=== PATIENT | male | born 1940 | race Caucasian/White ===

== ENCOUNTER 2022-06-26 11:26 | Outpatient (CLI) | payer MEDICARE, SELFPAY | END 2022-06-26 11:27 | disposition home or self-care (01) | LOC: AMB 07-16 12:19 | PROVIDERS: PCP Family Medicine; Visit Provider Emergency Medicine Emergency Medical Services | DX: R53.1 Weakness (principal) | CPT/HCPCS: A0998 ==

== ENCOUNTER 2023-11-17 09:20 | Emergency (ER) | payer MEDICARE, SELFPAY ==
[2023-11-17] VITALS (14 sets, daily range): BP systolic 145–161; BP diastolic 73–89; PULSE 60–100; RESP 18; TEMP 36.2; O2SAT 93–97; BMI 25.0
--- NOTE | 2023-11-17 09:25 | ED_ITS ---
HPI - General Adult General Date Seen: 11/17/23 Chief complaint: Fall/Minor Trauma Stated complaint: fall, head lac Time Seen by Provider: 11/17/23 09:22 History of Present Illness HPI narrative: This is a very pleasant 83-year-old gentleman brought to the ER today by his 2 daughters. He has a history of a mechanical aortic valve and a pacemaker. He is on warfarin, metoprolol. Recent INR was 3.2. He and his daughters were preparing to travel to [place] today for a family reunion. He was did trying to climb into his daughter's vehicle (at [facility]) when he lost his balance and slipped on the running board. He fell back and hit his head on the ground ([place]) and also scraped up his left hand. He did have some bleeding from scrape on the left thumb and index finger but that was controlled at home and dressings were applied. He does not have any significant injuries there. His daughters have noticed that he developed a fairly large hematoma on his left yazdanism that began to expand almost immediately after his fell. He does not really have much of a headache. Mental status is normal. Vision is normal. He does have some ?stiffness? in his lower neck and upper back. He says his upper back is always stiff but is worse than normal today. No numbness or tingling or weakness in his arms or legs. No lower back pain. No chest pain or rib pain. No trouble breathing. No abdominal pain. No injury to his hips or knees. Related Data Home Medications Medication Instructions Recorded Confirmed gabapentin 600 mg tablet 600 mg PO 3XD 11/17/23 11/17/23 isosorbide mononitrate 30 mg 30 mg PO DAILY 11/17/23 11/17/23 tablet,extended release 24 hr levetiracetam 750 mg tablet 750 mg PO BID 11/17/23 11/17/23 lovastatin 40 mg tablet 40 mg PO QPM cholesterol 11/17/23 11/17/23 metoprolol succinate 50 mg 50 mg PO DAILY 11/17/23 11/17/23 tablet,extended release 24 hr warfarin 2 mg tablet 1.5 - 5 mg PO QPM 11/17/23 11/17/23 Allergies Allergy/AdvReac Type Severity Reaction Status Date / Time No Known Drug Allergies Allergy Verified 11/17/23 09:31 [facility] Social History Smoking Status: Never smoker Do you use any of these nicotine containing products: None How often do you have a drink containing alcohol: never How often do you have six or more drinks on one occasion: Never AUDIT-C Alcohol total score: 0 Non-prescribed substance use: denies use service: No Exam Narrative: Exam Narrative: Constitutional: Appears well-developed and well-nourished. Alert. Conversant. Non toxic. HENT: Head: He has a fairly large 5 x 6 cm right temporal hematoma that is bulging out from the skull by of approximately 2-3 cm. No pulsatility. No signs of ongoing active expansion. No palpable crepitus or underlying skull fracture. There is an overlying abrasion on the top edge of it and a overlies Ng superficial linear abrasion/laceration directly over the hematoma. No active bleeding. Nose: Nose normal. Mouth/Throat: Oral mucosa is clear and moist. no trismus. Pharynx normal. Tonsils symmetric. No tonsillar enlargement, erythema, or exudate. Eyes: Wearing his glasses. Glasses in frames are not broken. Conjunctivae normal. EOM normal. Pupils equal, round, and reactive to light. No scleral icterus. Neck: Normal range of motion. Neck supple. No tracheal deviation present. He does have mild discomfort to palpation over the lower cervical and upper thoracic spine. No step-off. No bony crepitus. Cardiovascular: Normal rate, regular rhythm. No gallop. No friction rub. Clicking system murmur heard. Symmetric radial artery pulses Pulmonary/Chest: Effort normal. No stridor. No respiratory distress. No wheezes. No rales. No rhonchi . No tenderness. Abdominal: Soft. Bowel sounds normal. No distension. No mass. No tenderness. No rebound. No guarding. Musculoskeletal: RUE: Normal range of motion. No tenderness. No deformity LUE: Normal range of motion. No tenderness. No deformity RLE: Normal range of motion. No edema. No tenderness. No deformity LLE: Normal range of motion. No edema. No tenderness. No deformity Neurological: Alert and oriented to person, place, and time. Normal strength. CN II-VII intact. No sensory deficit. GCS eye subscore is 4. GCS verbal subscore is 5. GCS motor subscore is 6. Normal coordination Skin: Skin is warm and dry. No rash noted. No pallor. Normal capillary refill. Psychiatric: Normal mood. Normal affect. Const: Vital Signs, click to edit/add: Vital Signs - 24 hr 11/17/23 09:25 11/17/23 11:19 11/17/23 11:20 Temperature 97.1 F L Pulse Rate 67 64 Pulse Rate [Right Pulse Oximeter] 67 Respiratory Rate 18 Blood Pressure 148/74 H Blood Pressure [Ri ght Upper Arm] 161/88 H Pulse Oximetry 96 96 95 Oxygen Delivery Me thod Room Air 11/17/23 11:33 11/17/23 11:34 11/17/23 11:45 Temperature Pulse Rate 100 93 61 Pulse Rate [Right Pulse Oximeter] Respiratory Rate Blood Pressure 149/89 H Blood Pressure [Ri ght Upper Arm] Pulse Oximetry 93 95 96 Oxygen Delivery Me thod 11/17/23 12:00 11/17/23 12:02 11/17/23 12:03 Temperature Pulse Rate 62 66 63 Pulse Rate [Right Pulse Oximeter] Respiratory Rate Blood Pressure 151/73 H Blood Pressure [Ri ght Upper Arm] Pulse Oximetry 96 96 96 Oxygen Delivery Me thod 11/17/23 12:15 11/17/23 12:30 11/17/23 12:32 Temperature Pulse Rate 62 62 61 Pulse Rate [Right Pulse Oximeter] Respiratory Rate Blood Pressure 145/76 H Blood Pressure [Ri ght Upper Arm] Pulse Oximetry 96 96 96 Oxygen Delivery Me thod 11/17/23 12:45 11/17/23 13:00 Temperature Pulse Rate 60 76 Pulse Rate [Right Pulse Oximeter] Respiratory Rate Blood Pressure Blood Pressure [Ri ght Upper Arm] Pulse Oximetry 97 96 Oxygen Delivery Me thod Course Vital Signs Vital signs: Initial Vital Signs Temperature 97.1 F L 11/17/23 09:25 Temperature Source Temporal Artery Scan 11/17/23 09:25 Pulse Rate 67 11/17/23 09:25 Pulse Rhythm Regular 11/17/23 09:25 Respiratory Rate 18 11/17/23 09:25 Blood Pressure 161/88 H 11/17/23 09:25 Blood Pressure Mean 112 H 11/17/23 09:25 Blood Pressure Position Semi-Fowlers 11/17/23 09:25 Pulse Oximetry 96 11/17/23 09:25 Oxygen Delivery Method Room Air 11/17/23 09:25 Vital Signs Temperature 97.1 F L 11/17/23 09:25 Pulse Rate 67 11/17/23 09:25 Respiratory Rate 18 11/17/23 09:25 Blood Pressure 161/88 H 11/17/23 09:25 Pulse Oximetry 96 11/17/23 09:25 Oxygen Delivery Method Room Air 11/17/23 09:25 Temperature 97.1 F L 11/17/23 09:25 Pulse Rate 76 11/17/23 13:00 Respiratory Rate 18 11/17/23 09:25 Blood Pressure 145/76 H 11/17/23 12:32 Pulse Oximetry 96 11/17/23 13:00 Oxygen Delivery Method Room Air 11/17/23 09:25 Medications Administered Medications: Discontinued Medications Generic Name Dose Route Start Last Admin Trade Name Freq PRN Reason Stop Dose Admin Phytonadione 5 mg/ Sodium 50.5 mls @ 100 mls/hr 11/17/23 11:16 11/17/23 12:00 Chloride IVPB 11/17/23 11:46 Infused ONCE ONE Infusion Prothrombin Complex Concent (Human) 1,570 unit 11/17/23 11:58 11/17/23 12:29 Prothrombin Complex Conc IV 11/17/23 11:59 1,570 unit ONCE ONE Administration Medical Decision Making [facility] Narrative Medical decision making narrative: Pleasant 83-year-old gentleman presenting to the ER today with his daughters for evaluation after he had a slip and fall with a ground level fall. He struck his head against the pavement and suffered injury to his right temporal region. He presented with a fairly large right temporal hematoma. Otherwise notes neur ologically intact with GCS of 15 and no focal deficits. Head CT scan is obtained and does show evidence for small intracranial hemorrhage. These would be extra-axial subarachnoid but not subdural or epidural hematomas. Fortunately he is neurologically intact. He is on warfarin. INR is therapeutic at 2.8. No other signs of bleeding. Hemoglobin and blood pressure stable. With intracranial bleeding, although at this point he is neurologically intact, I do think he needs reversal of his warfarin. He is on it for mechanical aortic valve so risk of reversing the warfarin would include potential embolic stroke. However risk of leaving him anticoagulated could be expanding intracranial bleeding leading to life-threatening complications. Discussed with family and they agree and understand. Treated with vitamin K and PCC here in the ER At this point no need for emergent neurosurgical intervention but does need hospitalization at a neuro surgical capable facility in case his condition deteriorates. Discussed with the patient the family. They initially wanted to transfer to [facility]. Unfortunately no beds available there. We did do consultation with the [facility] retail parts professional and they were accepted in currently on a waiting list for a bed at [place]. Family adamantly did not want the patient to go to [place]. Therefore we contacted [facility]. They septic the patient in transfer and will be transferred by EMS to the ER at [facility]. Multiple bedside rechecks the patient remained neurologically intact. Initial hypertension of 160/88 came down to 145/76. No need for antihypertensive therapy at this time. He also had posterior neck stiffness affecting his lower cervical and upper thoracic spine. No focal neurologic deficits to suggest spinal cord injury. CT scans of the C-spine and T-spine showed no acute injury. He has had previous falls a couple of years ago with chronic previously known compression fractures. No sign of any acute vertebra injury. Lab Data Labs: Lab Results 11/17/23 Range/Units 10:10 WBC 6.12 (4.50-11.00) K/uL RBC 4.53 (4.30-5.90) m/uL Hgb 13.4 L (13.5-17.5) gm/dL Hct 42.1 (37.0-53.0) % MCV 93 (80-100) fL MCH 30 (26-34) pg MCHC 32 (32-36) gm/dL RDW Coeff of Zeynep 14.1 (11.5-15.5) % Plt Count 202 (140-440) K/uL Neut % (Auto) 64.7 (42.0-72.0) % Lymph % (Auto) 20.8 (20-44) % [place] % (Auto) 11.4 H (0.0-11.0) % Eos % (Auto) 2.6 (0.0-7.0) % Baso % (Auto) 0.3 (0.0-3.0) % Neut # (Auto) 3.96 (1.7-7.0) K/uL Lymph # (Auto) 1.27 (0.90-2.90) K/uL [place] # (Auto) 0.70 (0.00-0.90) K/UL Eos # (Auto) 0.16 (0.00-0.50) K/uL Baso # (Auto) 0.02 (0.00-0.30) K/uL Abs Immat Gran (auto) 0.01 (0.00-0.30) K/uL Imm/Tot Granulo (auto) 0.2 % INR 2.79 H (0.91-1.10) Sodium 142 (135-149) mmol/L Potassium 4.0 (3.6-5.1) mmol/L Chloride 112 (96-114) mmol/L Carbon Dioxide 28 (20-32) mmol/L Anion Gap 2 L (7-15) mEq/L BUN 22 (7-30) mg/dL Creatinine 0.8 (0.5-1.5) mg/dL Estimated Creat Clear 51.39 Estimated GFR 88 ml/min Glucose 101 (60-115) mg/dL Calcium 8.8 (8.4-10.6) mg/dL Imaging Data CT C spine: Attestation: I have reviewed the pertinent imaging results. Radiologist's impression: Impression: 1. No CT evidence of acute fracture or traumatic malalignment in the cervical spine. CT T spine: Attestation: I have reviewed the pertinent imaging results. Radiologist's impression: Impression: 1. Multilevel chronic-appearing compression deformities throughout the visualized thoracic and upper lumbar spine as detailed, along with numerous chronic healed right rib deformities. 2. No convincing evidence of acute thoracic spine fracture. CT scan - head: Attestation: I have reviewed the pertinent imaging results. Radiologist's impression: IMPRESSION: 1. Right frontal scalp hematoma, with multiple small foci of intracranial extra- axial hemorrhage as detailed. 2. No obvious skull fracture. No midline shift, hydrocephalus or herniation. 3. 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 Discharge Plan Discharge Prescriptions: No Action gabapentin 600 mg tablet 600 mg PO 3XD metoprolol succinate 50 mg tablet extended release 24 hr 50 mg PO DAILY isosorbide mononitrate 30 mg tablet extended release 24 hr 30 mg PO DAILY lovastatin 40 mg tablet 40 mg PO QPM warfarin 2 mg tablet 1.5 - 5 mg PO QPM levetiracetam 750 mg tablet 750 mg PO BID Follow Up/Referrals: Eric Juarez MD [Primary Care Provider] -
--- NOTE | 2023-11-17 09:26 | CT_ITS ---
Patient: DUANE BRAY JR Facility:?[facility] R[facility] Patient ID:?[id number] Site Patient ID:?[id number]. Site :?[id number] Study:?CT-Head W/O-11/17/2023 10:19:56 AM Ordering Physician:NEERU Final Report: INDICATION: Fall, trauma, scalp contusion, on warfarin TECHNIQUE: Noncontrast axial CT of the head. Coronal and sagittal reformats. Bone and soft tissue algorithms. COMPARISON: No relevant comparison studies available at this institution. FINDINGS: Right frontal scalp hematoma. Scattered small foci of extra-axial hemorrhage along the right frontal convexity, anterior/parafalcine left frontal lobe, right temporal sulci, and left lateral frontoparietal sulci. No midline shift, hydrocephalus or herniation. Preserved goodson-white matter differentiation. Small chronic infarct at the right posterior insula. Mild generalized cerebral volume loss. Patchy hypoattenuation throughout the supratentorial white matter, typical of mild chronic microangiopathy. Calcific intracranial atherosclerotic plaquing. Intact calvarium. Clear visualized paranasal sinuses and mastoid air cells. Unremarkable orbits. IMPRESSION: 1. Right frontal scalp hematoma, with multiple small foci of intracranial extra- axial hemorrhage as detailed. 2. No obvious skull fracture. No midline shift, hydrocephalus or herniation. 3. 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 Please note that all CT scans at this facility use dose modulation, iterative reconstruction, and/or weight-based dosing when appropriate to reduce radiation dose to as low as reasonably achievable. Dictated by Hannah Sandoval MD @ 11/17/2023 10:52:42 AM ----- ADDENDUM ----- Exam findings were discussed with Dr. Peters at 10:52 a.m. on 11/17/2023. Dictated by Hannah Sandoval MD @ Nov 17 2023 11:10AM Signed by:?Hannah Sandoval MD @11/17/2023 10:52:42 AM (Electronic Signature)
--- NOTE | 2023-11-17 09:36 | CT_ITS ---
Patient: DUANE BRAY JR Facility:?[facility] R[facility] Patient ID:?[id number] Site Patient ID:?[id number]. Site :?1940 Study:?CT-Spine Thoracic W/O-11/17/2023 10:20:44 AM Ordering Physician:NEERU Final Report: Indication: Fall, trauma, scalp contusion on warfarin. Neck and upper back pain. Technique: Noncontrast axial CT of the thoracic spine with coronal and sagittal reformats. Comparison: Same-day CT cervical spine. Findings: The normal thoracic kyphosis is preserved. No significant spondylolisthesis. Mild-moderate superior endplate anterior wedge compression deformities at T3 and T4. Moderate superior endplate anterior wedge compression deformity at T9. Severe compression deformity and anterior cortical retropulsion at L1. Scattered additional degenerative endplate Schmorl`s node deformities. No acute fracture identified. Numerous chronic healed right rib fractures. Spinal canal appears widely patent. No high-grade neural foraminal stenosis identified. No concerning findings in the paraspinal soft tissues. Partially visualized left pectoral transvenous pacemaker and leads. Median sternotomy changes. Scattered atherosclerotic plaquing. Slightly patulous air and fluid-filled esophagus. No focal mass, consolidation, or pneumothorax within the included lungs. Incidental bullous changes at the posterior right lower lobe. Cholecystectomy changes. Left renal cyst. Impression: 1. Multilevel chronic-appearing compression deformities throughout the visualized thoracic and upper lumbar spine as detailed, along with numerous chronic healed right rib deformities. 2. No convincing evidence of acute thoracic spine fracture. Please note that all CT scans at this facility use dose modulation, iterative reconstruction, and/or weight-based dosing when appropriate to reduce radiation dose to as low as reasonably achievable. Dictated by Hannah Sandoval MD @ 11/17/2023 11:03:18 AM Signed by:?Hannah Sandoval MD @11/17/2023 11:03:18 AM (Electronic Signature)
--- NOTE | 2023-11-17 09:36 | CT_ITS ---
Patient: DUANE BRAY JR Facility:?[facility] Patient ID:?[id number] Site Patient ID:?[id number]. Site :?1940 Study:?CT-Spine Cervical W/O-11/17/2023 10:20:23 AM Ordering Physician:NEERU Final Report: Indication: Fall, trauma, scalp contusion, on warfarin. Neck and upper back pain. Technique: Noncontrast axial CT of the cervical spine with coronal and sagittal reformats. Comparison: Same-day CT head Findings: The normal cervical lordosis is preserved. Trace degenerative anterolisthesis at a few lower cervical levels. No evidence to suggest traumatic subluxation. Craniocervical junction appears within normal limits. Vertebral body heights are grossly maintained. No acute fracture identified. No concerning findings identified in the paraspinal soft tissues. Postop changes are noted at the right carotid space. Scattered spondylosis, including shallow central disc protrusion at C3-4 and mild facet arthropathy. No high-grade neural foraminal or spinal canal stenosis. No apical pneumothorax identified given motion artifact limitations. Impression: 1. No CT evidence of acute fracture or traumatic malalignment in the cervical spine. Please note that all CT scans at this facility use dose modulation, iterative reconstruction, and/or weight-based dosing when appropriate to reduce radiation dose to as low as reasonably achievable. Dictated by Hannah Sandoval MD @ 11/17/2023 10:57:41 AM Signed by:?Hannah Sandoval MD @11/17/2023 10:57:41 AM (Electronic Signature)
[2023-11-17 10:18] LABS: Basophils Absolute Auto 0.02 K/uL (0.00-0.30); Basophils Percent Auto 0.3 % (0.0-3.0); Eosinophils Absolute Auto 0.16 K/uL (0.00-0.50); Eosinophils Percent Auto 2.6 % (0.0-7.0); Hematocrit 42.1 % (37.0-53.0); Hemoglobin* 13.4 gm/dL (13.5-17.5); Immature Granulocytes Abs Auto 0.01 K/uL (0.00-0.30); Immature Granulocytes Pct Auto 0.2 %; Lymphocytes Absolute Auto 1.27 K/uL (0.90-2.90); Lymphocytes Percent Auto 20.8 % (20-44); Mean Corpuscular HGB Conc 32 gm/dL (32-36); Mean Corpuscular Hemoglobin 30 pg (26-34); Mean Corpuscular Volume 93 fL (80-100); Monocytes Percent Auto 11.4 % (0.0-11.0); Neutrophils Absolute Auto 3.96 K/uL (1.7-7.0); Neutrophils Percent Auto 64.7 % (42.0-72.0); Platelet Count* 202 K/uL (140-440); RDW Coefficient of Variation % 14.1 % (11.5-15.5); Red Blood Count 4.53 m/uL (4.30-5.90); White Blood Count* 6.12 K/uL (4.50-11.00)
[2023-11-17 10:24] LABS: Slide Review Reflex No
[2023-11-17 10:29] LABS: Chloride* 112 mmol/L (96-114); Sodium* 142 mmol/L (135-149)
[2023-11-17 10:32] LABS: Anion Gap 2 mEq/L (7-15); Blood Urea Nitrogen* 22 mg/dL (7-30); Carbon Dioxide* 28 mmol/L (20-32); Creatinine* 0.8 mg/dL (0.5-1.5); Est. Creatinine Clearance* 51.39; Estimated Glomerular Filt Rate 88 ml/min; INR 2.79 (0.91-1.10); Prothrombin Time 31.6 Seconds
[2023-11-17 10:33] LABS: Calcium* 8.8 mg/dL (8.4-10.6); Glucose* 101 mg/dL (60-115)
[2023-11-17] MEDS: PHYTONADIONE (VIT K1) 5 MG in 0.9 % SODIUM CHLORIDE 50 ml 50 ML 100 MG IVPB (11:46)
--- NOTE | 2023-11-17 13:05 | ED.NURSE ---
report given to EMS.
--- NOTE | 2024-01-30 16:31 | ED_ITS ---
HPI - General Adult General Date Seen: 11/17/23 Chief complaint: Fall/Minor Trauma Stated complaint: fall, head lac Time Seen by Provider: 11/17/23 09:22 History of Present Illness HPI narrative: This is an addendum to my ER note from this patient from October 2023. I inadvertently admitted my clinical impression from his chart during urgency to get him transferred. Clinical impression: 1. Traumatic intracranial hemorrhage 2. Elevated INR Related Data Home Medications ?Medication ?Instructions ?Recorded ?Confirmed gabapentin 600 mg tablet 600 mg PO 3XD 11/17/23 11/17/23 isosorbide mononitrate 30 mg 30 mg PO DAILY 11/17/23 11/17/23 tablet,extended release 24 hr levetiracetam 750 mg tablet 750 mg PO BID 11/17/23 11/17/23 lovastatin 40 mg tablet 40 mg PO QPM cholesterol 11/17/23 11/17/23 metoprolol succinate 50 mg 50 mg PO DAILY 11/17/23 11/17/23 tablet,extended release 24 hr warfarin 2 mg tablet 1.5 - 5 mg PO QPM 11/17/23 11/17/23 Allergies Allergy/AdvReac Type Severity Reaction Status Date / Time No Known Drug Allergies Allergy Verified 11/17/23 09:31 [facility] Social History Smoking Status: Never smoker Do you use any of these nicotine containing products: None How often do you have a drink containing alcohol: never How often do you have six or more drinks on one occasion: Never AUDIT-C Alcohol total score: 0 Non-prescribed substance use: denies use service: No Course Vital Signs Vital signs: Initial Vital Signs Temperature 97.1 F L 11/17/23 09:25 Temperature Source Temporal Artery Scan 11/17/23 09:25 Pulse Rate 67 11/17/23 09:25 Pulse Rhythm Regular 11/17/23 09:25 Respiratory Rate 18 11/17/23 09:25 Blood Pressure 161/88 H 11/17/23 09:25 Blood Pressure Mean 112 H 11/17/23 09:25 Blood Pressure Position Semi-Fowlers 11/17/23 09:25 Pulse Oximetry 96 11/17/23 09:25 Oxygen Delivery Method Room Air 11/17/23 09:25 Vital Signs Temperature 97.1 F L 11/17/23 09:25 Pulse Rate 67 11/17/23 09:25 Respiratory Rate 18 04/20/24 09:25 Blood Pressure 161/88 H 11/17/23 09:25 Pulse Oximetry 96 11/17/23 09:25 Oxygen Delivery Method Room Air 11/17/23 09:25 Temperature 97.1 F L 11/17/23 09:25 Pulse Rate 76 11/17/23 13:00 Respiratory Rate 18 11/17/23 09:25 Blood Pressure 145/76 H 11/17/23 12:32 Pulse Oximetry 96 11/17/23 13:00 Oxygen Delivery Method Room Air 11/17/23 09:25 Medications Administered Medications: Discontinued Medications Generic Name Dose Route Start Last Admin Trade Name Freq PRN Reason Stop Dose Admin Phytonadione 5 mg/ Sodium 50.5 mls @ 100 mls/hr 11/17/23 11:16 11/17/23 12:00 Chloride IVPB 11/17/23 11:46 Infused ONCE ONE Infusion Prothrombin Complex Concent (Human) 1,570 unit 11/17/23 11:58 11/17/23 12:29 Prothrombin Complex Conc IV 11/17/23 11:59 1,570 unit ONCE ONE Administration Medical Decision Making Lab Data Labs: Lab Results 11/17/23 Range/Units 10:10 WBC 6.12 (4.50-11.00) K/uL RBC 4.53 (4.30-5.90) m/uL Hgb 13.4 L (13.5-17.5) gm/dL Hct 42.1 (37.0-53.0) % MCV 93 (80-100) fL MCH 30 (26-34) pg MCHC 32 (32-36) gm/dL RDW Coeff of Zeynep 14.1 (11.5-15.5) % Plt Count 202 (140-440) K/uL Neut % (Auto) 64.7 (42.0-72.0) % Lymph % (Auto) 20.8 (20-44) % [place] % (Auto) 11.4 H (0.0-11.0) % Eos % (Auto) 2.6 (0.0-7.0) % Baso % (Auto) 0.3 (0.0-3.0) % Neut # (Auto) 3.96 (1.7-7.0) K/uL Lymph # (Auto) 1.27 (0.90-2.90) K/uL [place] # (Auto) 0.70 (0.00-0.90) K/UL Eos # (Auto) 0.16 (0.00-0.50) K/uL Baso # (Auto) 0.02 (0.00-0.30) K/uL Abs Immat Gran (auto) 0.01 (0.00-0.30) K/uL Imm/Tot Granulo (auto) 0.2 % INR 2.79 H (0.91-1.10) Sodium 142 (135-149) mmol/L Potassium 4.0 (3.6-5.1) mmol/L Chloride 112 (96-114) mmol/L Carbon Dioxide 28 (20-32) mmol/L Anion Gap 2 L (7-15) mEq/L BUN 22 (7-30) mg/dL Creatinine 0.8 (0.5-1.5) mg/dL Estimated Creat Clear 51.39 Estimated GFR 88 ml/min Glucose 101 (60-115) mg/dL Calcium 8.8 (8.4-10.6) mg/dL Discharge Plan Discharge Clinical Impression: Traumatic intracranial hemorrhage, Elevated INR Prescriptions: No Action gabapentin 600 mg tablet 600 mg PO 3XD metoprolol succinate 50 mg tablet extended release 24 hr 50 mg PO DAILY isosorbide mononitrate 30 mg tablet extended release 24 hr 30 mg PO DAILY lovastatin 40 mg tablet 40 mg PO QPM warfarin 2 mg tablet 1.5 - 5 mg PO QPM levetiracetam 750 mg tablet 750 mg PO BID Follow Up/Referrals: Eric Juarez MD [Primary Care Provider] -
== END 2023-11-17 13:09 | disposition short-term general hospital (02) ==
LOC: ED 10:10
PROVIDERS: Emergency Provider Emergency Medicine; PCP Family Medicine
DX: S06.6X0A Traumatic subarachnoid hemorrhage without loss of consciousness, initial encounter (principal); W19.XXXA Unspecified fall, initial encounter; Y92.014 Private driveway to single-family (private) house as the place of occurrence of the external cause; Z79.01 Long term (current) use of anticoagulants
CPT/HCPCS: 36415; 70450; 72125; 72128; 80048; 85025; 85610; 96365; 96375; 99284; 99285; J3430; J7168

== ENCOUNTER 2023-11-17 13:10 | Outpatient (CLI) | payer MEDICARE, SELFPAY | END 2023-11-17 13:11 | disposition home or self-care (01) | LOC: AMB 11-18 14:25 | PROVIDERS: PCP Family Medicine; Visit Provider Family Medicine | DX: S00.03XS Contusion of scalp, sequela (principal) | CPT/HCPCS: A0425; A0427 ==

== ENCOUNTER 2024-07-11 17:46 | Emergency (ER) | payer MEDICARE, SELFPAY ==
[2024-07-11 17:53] VITALS: BP 178/74; PULSE 82; RESP 18; TEMP 36.4; O2SAT 99; BMI 25.4
--- NOTE | 2024-07-11 18:35 | ED_ITS ---
HPI - General Adult General Date Seen: 07/11/24 Chief complaint: Fall/Minor Trauma Stated complaint: L side facial fracture Time Seen by Provider: 07/11/24 17:49 Source: patient History of Present Illness HPI narrative: Patient is an 83-year-old male here with his daughter. He sustained a fall couple of weeks ago, had seen his primary doctor in clinic today and noted that he had had some nose bleeds on the left side. A CT scan was done as a result, and they received a call a little bit ago that he should go to the ER. He denies any complaints at this time. Specifically he does not have any facial or ocular pain, does not have any complaints of new blurred vision, no diplopia, he does note intermittent nose bleeds. He has not had any clear nasal drainage. He does not have any history of fevers. He is anticoagulated on Coumadin. Related Data Home Medications ?Medication ?Instructions ?Recorded ?Confirmed gabapentin 600 mg tablet 600 mg PO 3XD 11/17/23 11/17/23 isosorbide mononitrate 30 mg 30 mg PO DAILY 11/17/23 11/17/23 tablet,extended release 24 hr levetiracetam 750 mg tablet 750 mg PO BID 11/17/23 11/17/23 lovastatin 40 mg tablet 40 mg PO QPM cholesterol 11/17/23 11/17/23 metoprolol succinate 50 mg 50 mg PO DAILY 11/17/23 11/17/23 tablet,extended release 24 hr warfarin 2 mg tablet 1.5 - 5 mg PO QPM 11/17/23 11/17/23 Allergies Allergy/AdvReac Type Severity Reaction Status Date / Time No Known Drug Allergies Allergy Verified 11/17/23 09:31 Review of Systems Status of ROS: Reports: 10 or more systems reviewed and unremarkable except as noted in History and below [facility] Social History Smoking Status: Never smoker Do you use any of these nicotine containing products: None How often do you have a drink containing alcohol: never How often do you have six or more drinks on one occasion: Never AUDIT-C Alcohol total score: 0 Non-prescribed substance use: denies use service: No Exam Narrative: Exam Narrative: Vital signs reviewed In general, alert, well-appearing elderly male. Head: Normocephalic, appears atraumatic at this time. Eyes: Pupils are equal and reactive. Extraocular movements are full no evidence of entrapment. ENT: He does not have any nasal tenderness or swelling. Does not have any erythema or tenderness overlying the sinuses. No visible of bony deformity. TMs are normal, no hemotympanum. Neck: Nontender to palpation. Neurologic: He is alert, conversant, gait stable. Const: Vital Signs, click to edit/add: Vital Signs - 24 hr 07/11/24 17:53 Temperature 97.6 F Pulse Rate [Pulse Oximeter] 82 Respiratory Rate 18 Blood Pressure [Ri ght Upper Arm] 178/74 H Pulse Oximetry 99 Oxygen Delivery Me thod Room Air Documenting provider has reviewed patient's vital signs: yes Course Course ED Course: I reviewed the CT results. He has have a dense of opacification of the left maxillary sinus, a little bit of subtle buckling of the posterior superior wall of left maxillary sinus which may represent a fracture. He had a subtle fracture along the floor of the left orbit and a possible fracture crossing the left infraorbital neural foramen. However, I do not find any evidence of entrapment of the nerve on exam. He is asymptomatic at this time and the fall was 2 weeks ago. I did review his care with Dr. Carbajal in who recommends clinic follow-up in the 2nd week of July. I have given them the phone number to follow that up. Review of the literature suggests that prophylactic antibiotics are not indicated, will hold off for now unless I am given different information by Dr. Carbajal. Return as needed for new symptoms such as significant pain, fever or other worsening. Vital Signs Vital signs: Initial Vital Signs Temperature 97.6 F 07/11/24 17:53 Temperature Source Temporal Artery Scan 07/11/24 17:53 Pulse Rate 82 07/11/24 17:53 Respiratory Rate 18 07/11/24 17:53 Blood Pressure 178/74 H 07/11/24 17:53 Blood Pressure Mean 108 H 07/11/24 17:53 Pulse Oximetry 99 07/11/24 17:53 Oxygen Delivery Method Room Air 07/11/24 17:53 Vital Signs Temperature 97.6 F 07/11/24 17:53 Pulse Rate 82 07/11/24 17:53 Respiratory Rate 18 07/11/24 17:53 Blood Pressure 178/74 H 12/13/24 17:53 Pulse Oximetry 99 07/11/24 17:53 Oxygen Delivery Method Room Air 07/11/24 17:53 Temperature 97.6 F 07/11/24 17:53 Pulse Rate 82 07/11/24 17:53 Respiratory Rate 18 07/11/24 17:53 Blood Pressure 178/74 H 07/11/24 17:53 Pulse Oximetry 99 07/11/24 17:53 Oxygen Delivery Method Room Air 07/11/24 17:53 Discharge Plan Discharge Clinical Impression: Facial fracture Patient Disposition: Home, Self-Care Condition: Stable Instructions: Facial Fracture (DC) Additional Instructions: I would recommend that you follow-up with ear nose and throat, Dr. Carbajal. He suggested that he see you the week of July. You can call the clinic, to schedule appointment either in [place] or in [place]. For now, will hold off on antibiotics. If that changes, I will call you. Prescriptions: No Action gabapentin 600 mg tablet 600 mg PO 3XD metoprolol succinate 50 mg tablet extended release 24 hr 50 mg PO DAILY isosorbide mononitrate 30 mg tablet extended release 24 hr 30 mg PO DAILY lovastatin 40 mg tablet 40 mg PO QPM warfarin 2 mg tablet 1.5 - 5 mg PO QPM levetiracetam 750 mg tablet 750 mg PO BID Follow Up/Referrals: Eric Juarez MD [Primary Care Provider] - Stand Alone Forms: MyHealth Info Instructions
== END 2024-07-11 18:51 | disposition home or self-care (01) ==
PROVIDERS: Emergency Provider Emergency Medicine; PCP Family Medicine
DX: S02.32XA Fracture of orbital floor, left side, initial encounter for closed fracture (principal); W19.XXXA Unspecified fall, initial encounter
CPT/HCPCS: 99283; 99284

== ENCOUNTER 2025-03-08 09:11 | Emergency (ER) | payer MEDICARE, SELFPAY ==
[2025-03-08] VITALS (21 sets, daily range): BP systolic 107–157; BP diastolic 64–78; PULSE 60–75; RESP 12–18; TEMP 36.6; O2SAT 92–95; BMI 25.8
--- OUTSIDE RECORDS SUMMARY | 2025-03-08 09:14 | XMS_ITS | Clinical Summary ---
Author Organization [facility] Address [address] [place] [address] Care Team Providers Care Remodeler Name Role Phone Elsewhere, Pcp Primary Care Provider Unavailabl e Source Comments Patient records contain information from all sites at [facility]. For routine questions regarding patient records, call [phone] during business hours, M-F 8:00 AM - 5:00 PM Central Time. Record requests for emergency care only can be directed to [phone] at any time.[facility] Allergies No known active allergies Medications gabapentin (NEURONTIN) 600 mg tablet Take 600 mg by mouth 3 (three) times a day. 4 Active levETIRAcetam (KEPPRA) 750 mg tablet Take 750 mg by mouth 2 (two) times a day. 4 Active lovastatin (MEVACOR) 40 mg tablet Take 40 mg by mouth daily with dinner. 4 Active metoprolol succinate (TOPROL-XL) 50 mg 24 hr tablet Take 1 tablet by mouth daily. 3 Active isosorbide mononitrate (IMDUR) 30 mg 24 hr tablet Take 1 tablet by mouth daily. [address] tablet Take 1 tablet (81 mg total) by mouth daily. 4 Active Additional Information Patient not taking.Reported on 11/26/2023 warfarin (JANTOVEN) 2 mg tablet Take 1.5 tablets (3 mg total) by mouth daily. 30 tablet 4 Active Additional Information Patient not taking.Reported on 11/26/2023 acetaminophen (TYLENOL) 500 mg tablet Take 2 tablets (1,000 mg total) by mouth every 6 (six) hours as needed for pain. 4 Active docusate sodium (COLACE) 100 mg capsule Take 100 mg by mouth 2 (two) times a day as needed. 2 Active cholecalciferol (Vitamin D3) 50 mcg (2,000 Unit) tablet Take 50 mcg by mouth daily. 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 Sauer Colonoscopy 05/2013 multiple polyps, one could not be removed, recommend follow up to discuss removal Febua2013: Biopsy Tubular adenoma consistent with advanced adenoma (see comment) 2. No high grade dysplasia or invasive malignancy, colorectal Surgeon Consult ordered. 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 Recheck September 2014: all liver chemistry tests improved, globulin still slightly high. January 2015: SPEP without monoclonal protein, 2 high ( cecelia and beta) suggesting chronic liver disease or autoimmune or chronic inflammation. Blepharitis Right 03/10/2014 Rn Anesthesiology (Current) Anticoagulant Treatment 08/31 Overview (11/17/2023): May 2019: Per Dr. Mc, he should bridge with lovenox if going off coumadin. 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 Mc states, Given that the prosthetic valve is in the aortic position, LVEF is normal and he is not in atrial fibrillation does not need bridging. May 2019: Per Dr. Mc, he should bridge with lovenox if going off coumadin. Bundle Branch Block Right 07/27/2009 PreDiabetes 01/10/2009 Overview (11/17/2023): Follow sugars yearly- due 04.08: normal at 80. May 2019: A1c screening 6.3. Gout 08/14/2007 Overview (11/17/2023): last episode over 20 years ago Anxiety 04/14/2003 Overview (11/17/2023): On clonazepam, started by Dr. Eller 2006. Also on Citalopram (Celexa). January 2016: trying off clonazepam. Aug 2016: tried decrease Citalopram (Celexa) dose, but symptoms worsened so increased back up. December 2017: trying to taper off Citalopram (Celexa) again, went off and doing well as of Mar 2018. Seizure 04/14/2003 Overview (11/17/2023): Sees Dr. Constantino Bhatia of Neurology, see follow up consult Feb 2012. Follow up note 04/10/[address] Bhatia, no change. Feb 2017: Follow up with Dr. Bhatia, suggested could have me ( Dr. Juarez) refill anti- seizure meds as he hasn't had a seizure in over 4 years. January 2020: Saw Dr. Woodruff, said likely having 2-3 partial seizures a year, did not change medication. 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 January 2016: try tapering off. Pure Hypercholesterolemia 08/30/1999 Overview (11/17/2023): May 2011: LDL 101, continue mevacor and add fish oil supplements. Immunizations Immunization Administration Dates Next Due Tdap 11/18/2023 Social History Tobacco Use Types Packs/Day Years Used Date Smoking Tobacco: Former Cigarettes 1 1 S tarted: 1982 Passive Smoke Exposure: Never Smokeless Tobacco: Never Tobacco Cessation:Counseling Given: Not Answered Alcohol Use Standard Drinks/Week Comments Never 0 (1 standard drink = 0.6 oz pur e alcohol) [facility] Utilities Answer Date Recorded In the past 12 months has [facility] [employer], gas, oil, or water dINK threatened to shut off services in your home? No 11/18/2023 Humiliation, Afraid, Rape, and Kick questionnair e Answer Date Recorded Within the last year, have y ou been afraid of your partner or ex-partner? No 11/18/2023 Within the last year, have y ou been humiliated or emotionally abused in other ways by your partner or ex-partner? No Within the last year, have y ou been kicked, hit, slapped, or otherwise physically hurt by your partner or ex-partner? No 11/18/2023 Within the last year, have y ou been raped or forced to have any kind of sexual activity by your partner or ex-partner? No 11/18/2023 Hunger Vital Sign Answer Date Recorded Within the past 12 months, y ou worried that your food would run out before you got the money to buy more. Sometimes true Within the past 12 months, t he food you bought just didn't last and you didn't have money to get more. Sometimes true PRAPARE - Transportation Answer Date Re corded In the past 12 months, has l ack of transportation kept you from medical appointments or from getting medications? No 10/29 In the past 12 months, has l ack of transportation kept you from meetings, work, or from getting things needed for daily living? No 11/18/2023 Housing Stability Answer Date Recorded What is your living situation today? I have a [facility] place to live 11/18/2023 Sex and Gender Information Value Date Recorded Sex Assigned at Not on file Legal Sex Male 12:21 PM CDT Gender Identity Not on file Sexual Orientation Not on file Last Filed Vital Signs Vital Sign Reading Time Taken Comments Blood Pressure 143/63 11/18/2023 12:00 PM CDT Pulse 91 11/18/2023 12:00 PM CDT Temperature 36.7 C (98.1 F) 11/18/2023 12:00 PM CDT Respiratory Rate 20 11/18/2023 12:00 PM CDT Oxygen Saturation 94% 11/18/2023 12:00 PM CDT Inhaled Oxygen Concentration - - Weight - - Height - - Body Mass Index - - Plan of Treatment Health Maintenance Due Date Last Done Comments Office Visit for Blood Pressure Check / Re-check 1941 Zoster Vaccines (1 of 2) 1991 RSV vaccine - (32-36 weeks) or 60+ years (1 - 1-dose 75+ series) 2016 COVID-19 Vaccine (2023- season) 2024 06/08/2023, 06/12/2022, 02/18/2022, Additional history exists Depression Screening (Annual PHQ-2) 07/30/2024 Fall Risk Screen (Annual) 07/30/2024 Fasting Glucose for Diabetes Screening 11/17/2024 11/18/2023, 11/17/2023, 11/17/2023, Additional history exists Influenza Vaccine (#1) 2025 3, 03/21/2022, 05/09/2021, Additional history exists DTaP,Tdap,and Td Vaccines (3 - Td or Tdap) 11/17/2033 11/18/2023, 03/07/2013, 12/02/2009, Additional history exists Pneumococcal vaccine (50+ years) Completed 08/23/2015, 05/10/2012 IPV Vaccines Aged Out No longer eligi ble based on patient's age to complete this topic Medical Devices Implanted Type Area Slip Dumper Device Identifier Shelf Expiration Date Model / Serial / Lot Cardiac Valve Prosthesis Cardiac Valve Prosthesis Heart Pacemaker Pacemaker Heart Medtronic [id number] / / Description:Implanted by: [place] [address] Procedures Procedure Name Priority Date/Time Associated Diagnosis Comments BASIC METABOLIC PANEL, S/P Routine 11/18/2023 4:15 AM CDT from Last 3 Months or Most Recently Relevant to Health Maintenance Results * (ABNORMAL) Basic Metabolic Panel (11/18/2023 4:15 AM CDT) Potassium, S 4.2 3.6 - 5.2 mmol/L 11/18/2023 5:18 AM CDT DTL Sodium, S 140 135 - 145 mmol/L 11/18/2023 5:18 AM CDT DTL Chloride, S 104 98 - 107 mmol/L 11/18/2023 5:18 AM CDT DTL Bicarbonate, S 26 22 - 29 mmol/L 11/18/2023 5:18 AM CDT DTL Anion Gap 10 7 - 15 11/18/2023 5:18 AM CDT DTL BUN (Blood Urea Nitrogen), S 21 8 - 24 mg/dL 11/18/2023 5:18 AM CDT DTL Creatinine 0.96 0.74 - 1.35 mg/dL 11/18/2023 5:18 AM CDT DTL Estimated GFR (eGFR) 79 >=60 mL/min/BSA 11/18/2023 5:18 AM CDT DTL Comment: Estimated GFR calculated using the 2021 CKD_EPI creatinine equation. Calcium, Total, S 8.7(L) 8.8 - 10.2 mg/dL 11/18/2023 5:18 AM CDT DTL Glucose, S 91 70 - 140 mg/dL 11/18/2023 5:18 AM CDT DTL Blood (Blood, Venous) 11/18/2023 4:15 AM CDT 11/18/2023 5:01 AM CDT us Charlie Martinez M.D. LAB BLOOD ADD-ON Edel l Result [facility] [address] [place] [address], [facility] [address] [place] [address] from Last 3 Months or Most Recently Relevant to Health Maintenance Insurance [facility] Advance Directives For more information, please contact: [phone] * Full Code (Latest Code Status on File) Date Activated Date Inactivated Comments 11/17/2023 5:47 PM 11/18/2023 2:37 PM Question Answer Comments Full Code: Not Discussed Due to: Patient not available Care Teams Remodeler Relationship Specialty Start Date End Date Elsewhere, Pcp PCP - General Internal Medicine 11/17/23
--- OUTSIDE RECORDS SUMMARY | 2025-03-08 09:14 | XMS_ITS | Clinical Summary ---
Author Organization [facility] Address [address] [place] [address] Care Team Providers Care Assembler Erector Name Role Phone Eric Juarez MD Primary Care Provider [phone] Constantino Bhatia MD Unavailable [phone] Heather Pickens Unavailable [phone] Rey Barrientos MD Unavailable [phone] Ana Hdez Unavailable + Allergies No known active allergies Medications acetaminophen (TYLENOL EXTRA STRGTH) 500 mg tabletIndications:pain Take 2 tablets by mouth every 6 hours if needed. Max acetaminophen dose: 4000mg in 24 hrs. 40 tablet 2018 Active docusate (COLACE) 100 mg capsuleIndications:Chr onic constipation Take 1 Capsule (100 mg) by mouth 2 times daily if needed for Constipation. 60 Capsule 3 2021 Active aspirin (Aspirin EC) 81 mg enteric coated tabletIndications:Soares tid artery stenosis, symptomatic, right Take 1 Tablet (81 mg) by mouth once daily with a meal. 0 2021 Active Graduated Compression StockingsIndications:L eft leg swelling For personal use. Length: calf Strength: 20-30 mmHg 1 Packet 2021 Active lovastatin (MEVACOR) 40 mg tabletIndications:Pure hypercholesterolemia TAKE 1 TABLET BY MOUTH EVERY EVENING FOR CHOLESTEROL 90 Tablet 1 2024 Active gabapentin 600 mg tabletIndications:Conv ulsions, unspecified convulsion type (HC) TAKE 1 TABLET (600 MG) BY MOUTH THREE TIMES DAILY. 270 Tablet 2024 Active isosorbide mononitrate 30 mg extended release tablet 24 HourIndications:Athero sclerosis of [place] coronary artery of [place] heart without angina pectoris TAKE 1 TABLET (30 MG) BY MOUTH ONCE DAILY. NO FURTHER REFILLS UNTIL SEEN BY CARDIOLOGY. CALL [phone] TO SCHEDULE 30 Tablet 2024 Active levETIRAcetam 750 mg tabletIndications:Conv ulsions, unspecified convulsion type (HC) TAKE 1 TABLET (750 MG) BY MOUTH TWO TIMES DAILY. 180 Tablet 2024 Active multivitamins-minerals -lutein (Multivitamin 50 Plus) tab tablet Take 1 Tablet by mouth once daily. Active warfarin (COUMADIN) 2 mg tabletIndications:Hist ory of mechanical aortic valve replacement,Anticoagul ation monitoring, INR range 2.5-3.5,Cerebral artery occlusion Take by mouth 2 mg (2 mg x 1 tablet) every Mon, Fri; 3 mg (2 mg x 1.5 tablets) all other days in the evening OR as directed 124 Tablet 2024 Active metoprolol succinate (TOPROL XL) 50 mg sustained-release tabletIndications:Athe rosclerosis of [place] tribe coronary artery of [place] heart without angina pectoris Take 1 Tablet (50 mg) by mouth once daily. 30 Tablet 2024 Active metoprolol succinate 50 mg sustained-release tabletIndications:Athe rosclerosis of [place] tribe coronary artery of chick[place] tribe heart without angina pectoris Take 1 Tablet (50 mg) by mouth once daily. 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 Rosado, already on Aspirin, coumadin, and Statin. Acute blood loss anemia 12/13/2021 Overview (12/18/2021): November 2021: Hospitalized, psoas hematoma. 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 Had CT Scan and Cystoscopy 2020 another urology consult with cystoscopy (Dr. Portillo). January 2025: microscopic hematuria. Gross hematuria 08/16/2016 Overview (08/16/2016): 2012 and again Jul 2016: Had work up in 2012 with urologist. Nuclear senile cataract of both eyes 08/08/2016 Balanitis 06/21/2015 Left inguinal hernia 06/21/2015 Unspecified cerebral artery occlusion without mention of cerebral infarction 02/05/2015 Elevated liver function tests 10/06/2014 Overview (02/22/2015): Early 2014: Bilirubin and protein liver chemistry tests high. Recheck September 2014: all liver chemistry tests improved, globulin still slightly high. January 2015: SPEP without monoclonal protein, 2 high ( cecelia and beta) suggesting chronic liver disease or autoimmune or chronic inflammation. Dry eye 03/10/2014 Blepharitis 03/10/2014 Anticoagulation monitoring, INR range 2.5-3.5 Overview (06/02/2019): May 2019: Per Dr. Mc, he should bridge with lovenox if going off coumadin. History of mechanical aortic valve replacement 0 02/03/2013 Overview (06/02/2019): of Apr 2013: Dr. Mc states, Given that the prosthetic valve is in the aortic position, LVEF is normal and he is not in atrial fibrillation does not need bridging. May 2019: Per Dr. Mc, he should bridge with lovenox if going off coumadin. Thoracic compression fracture 01/01/2013 Overview (01/01/2013): Seen on 12/31/12 chest xray. New as compared to 2009. Patient denies back pain or back trauma. To follow up with Eric Juarez MD Issue of repeat prescriptions 10/26/2011 Overview (12/26/2011): Controlled substance agreement for clonazepam 1 tab a day, can give 90 with 1 refill, on file and signed September 2011. Designated pharmacy: [facility] Prescribing physician: Dr. Juarez Diagnosis: Anxiety. Started by Dr. Eller 2007 or so. RBBB (right bundle branch block) 07/27/2009 Dilation of esophagus 04/25/2009 Overview (04/25/2009): Seen on CT 04/07- reflux as well Prediabetes 01/10/2009 Overview (06/15/2019): Follow sugars yearly- due 04.08: normal at 80. May 2019: A1c screening 6.3. Gout, unspecified 08/14/2007 Overview (08/14/2007): last episode over 20 years ago Drusen (degenerative) of retina 06/04/2007 Overview (06/04/2007): photos taken INSOMNIA 03/15/2005 SEIZURE DISORDER 04/14/2003 Overview (02/19/2020): Sees Dr. Constantino Bhatia of Neurology, see [...] seizures a year, did not change medication. Anxiety 04/14/2003 Overview (04/27/2018): On clonazepam, started by Dr. Eller 2006. Also on Citalopram (Celexa). January 2016: trying off clonazepam. Aug 2016: tried decrease Citalopram (Celexa) dose, but symptoms worsened so increased back up. December 2017: trying to taper off Citalopram (Celexa) again, went off and doing well as of Mar 2018. ATHEROSCLEROSIS, CORONARY, SHISHMAREF IRA ARTERY 000 Overview (01/21/2008): VASCULAR CARE INITIATIVE- HYPERCHOLESTEROLEMIA, PURE 08/30/1999 Overview (06/11/2011): May 2011: LDL 101, continue mevacor and add fish oil supplements. Gastroesophageal reflux disease without esophagi tis 08/30/1999 Overview (02/25/2016): On protonix since at least 2002. January 2016: try tapering off. Personal history of colonic polyps Overview (03/08/2015): multiple polyps, repeat one year if no high dysplasia, otw in [address] Sauer Colonoscopy 05/2013 multiple polyps, one could not be removed, recommend follow up to discuss removal 2013: Biopsy Tubular adenoma consistent with advanced adenoma (see comment) 2. No high grade dysplasia or invasive malignancy, colorectal Surgeon Consult ordered. Achalasia Resolved Problems Problem Noted Date Diagnosed Date Resolved Date Closed fracture of facial bone due to fall 07/13/2024 11/06/2024 Overview (07/13/2024): May 2024 fall, resulting in facial orbital and sinus fracture, treated non-operatively. SDH (subdural hematoma) 11/24/202310/28 Overview (11/24/2023): October 2023: fall hitting head on ground, small subdural that did not need Surgery. Hypokalemia 09/20/2009 09/05/2010 Closed fracture of multiple ribs, unspecified 07/02/20 08 12/31/2012 Coronary atherosclerosis of unspecified type of vessel, [place] or graft 01/18/2006 11/28/2006 CONTUSION, RIGHT RIB 12/01/2003 006 See Logician for additional problems 09/19/2003 09/12/2005 Lumbago 07/09/2001 08/14/2007 PNEUMONIA, BACTERIAL NEC 11/28/199908/2006 INFECTION, BACTERIAL D/T HELICOBACTER PYLORI 0 08/14/2007 ABUSE, ALCOHOL, IN REMISSION 08/30/1999 05/02/2013 Overview (05/02/2013): Stopped all alcohol back in 1982 or so. Encounters Date Type Department Care Team Description 03/02/2025 11:45 AM CDT [place] [facility] [address] [place] [address] Lab, [facility] 03/02/2025 Anticoagulation (warfarin) [facility] [address] [place] [address] Nurse, Hai Anticoag Anticoagulation 03/02/2025 Travel 02/15/2025 Refill [facility] [address] [place] [address] Rey Barrientos MD Refill Request (Metoprolol Succinate) 02/07/2025 Refill [facility] [address] [place] [address] Eric Juarez MD Refill Request (Warfarin) 02/03/2025 Refill [facility] [place] [facility] [address] [place] [address] Rey Barrientos MD Refill Request (Isosorbide Mononitrate) 02/02/2025 11:00 AM CDT Procedure Only [facility] [address] [facility] [place] [address] Device Check (In-Clinic Medtronic Pacemake... 02/02/2025 Travel 01/29/2025 1:50 PM CDT Office Visit [facility] [address] [place] [address] Eric Juarez MD ER Follow up (01/23/2025 [facility]/LLQ Abdominal Pain) 01/29/2025 Travel 01/27/2025 Refill [facility] [address] [place] [address] Eric Juarez MD Refill Request (Levetiracetam) 01/23/2025 9:18 AM CDT - 01/23/2025 12:33 PM CDT Emergency [facility] [address] [place] [address] Marie Pagan MD Left lower quadrant abdominal pain (Primary Dx); Asymptomatic microscopic hematuria Discharge Disposition: Home Self Care 01/23/2025 Travel 01/19/2025 Anticoagulation (warfarin) [facility] [address] [place] [address] Nurse, Hai Anticoag Anticoagulation 01/19/2025 Travel 01/02/2025 11:45 AM CDT Office Visit [facility] [address] [place] [phone] Kishor Grant MD Consult (epistaxis) 01/02/2025 Travel 01/01/2025 Refill [facility] at [facility] [address] [place] [address] Rey Barrientos MD Refill Request (Isosorbide Mononitrate) 12/18/2024 11:15 AM CDT Orders Only [facility] [address] [place] [address] Lab, Farm Lab 12/18/2024 Anticoagulation (warfarin) [facility] [address] [place] [address] 1, [facility] Anticoagulation 12/18/2024 Travel 12/10/2024 Refill [facility] [address] [place] [address] Eric Juarez MD Refill Request (Gabapentin) 12/10/2024 Nurse Triage [facility] [address] [place] [address] Eric Juarez MD Nose Problem 12/09/2024 Telephone [facility] [address] [place] [address] Eric Juarez MD Appointment Request (SHANE referral Bloodynose) from Last 3 Months Immunizations Immunization Administration Dates Next Due AMB INFLUENZA IIV3 (AGE 65+ YRS) PF (Flu Clinic Only) 04/17/2018 AMB Influenza, IIV3 (Age >=3 years)(Flu Clinic Only) 04/25/2013,06/03/2011,05/24/2010 Amb Influenza, Inact (High-d ose) (Flu Clinic Only) 05/12/2016,05/19/2014 COVID-19 VACCINE SPIKEVAX (M ODERNA 50MCG/0.5ML) 12YO+ PFS 06/08/2023 COVID-19 vaccine (Moderna 100mcg/0.5mL) PF, MDV 02/18/2022 COVID-19 vaccine (Moderna 50 mcg/0.5mL) 12YO+ BIVALENT PF, MDV 06/12/2022 COVID-19 vaccine (Pfizer-Bio NTech 30mcg/0.3mL) PF, MDV 07/05/2021,10/07/2020,09/16/2020 Influenza A (H1N1), Inactiva shaniqua (Age >=3 Years) 07/16/2009 Influenza, High-dose Inactivated 06/16/2024,03/30,04/29/2015 Influenza, High-dose Quadriv alent Inactivated 05/04/2023,03/21/2022 Influenza, IIV3 (Age >=3 years) 05/10/20 12,04/15/2009,05/28/2008,06/04,06/14/2006,05/17/2005,07/19/2004 ,06/11/2003,06/05/2001 Influenza, Inactivated AIIV4 (Age 65+ Years) Preserv Free 05/09/2021 Influenza, Inactivated IIV3 (Age 65+ Years) Preserv Free 04/13/2020,05/03/2017 Pneumococcal Poly,23-Valent (Pneumovax) 05/10/2012 Pneumococcal conj 13-Valent (Prevnar 13) 08/23/2015 RSV, Recombinant ADJ Reconst ituted (Arexvy 120MCG/0.5mL) 02/02/2024 Td (Age >=7 Years) 12/02/2009 Td, Preservative Free (age >= 7 Years) 6 Tdap 11/18/2023,03/07/2013 Zoster (Shingrix-RZV, recombinant) 02/02/2024 Family History Medical History Relation Name Comments Diabetes Brother Diabetes Father Good Health Mother fro m old age Diabetes type II Son Anesthesia Problem No Family History Blood Disease No Family History Relation Name Status Comments Brother Father Mother Son Social History Tobacco Use Types Packs/Day Years Used Date Smoking Tobacco: Former Cigarettes 2 26.8 0 07/30/1957 - 05/29/1984 Smokeless Tobacco: Never Tobacco Cessation:Counseling Given: Yes Alcohol Use Standard Drinks/Week Comments No 0 (1 standard drink = 0.6 oz pur e alcohol) none since 10/1983 PHQ-2 Answer Date Recorded PHQ-2 TOTAL SCORE 0 11/06/2024 Social Connections Answer Date Recorded Do you often feel lonely or isolated from those around you? 0 04/17/2024 Financial Resource Strain Answer Date R ecorded Difficulty of Paying Living Expenses 3 04/17/2024 Difficulty of Paying Living Expenses Not on file 04/17/2024 Food Insecurity Answer Date Recorded Do you worry your food will run out before you are able to buy more? 1 04/17/2024 Transportation Needs Answer Date Record ed Does lack of transportation keep you from medica l appointments? 1 04/17/2024 Does lack of transportation keep you from work, meetings or getting things that you need? 1 04/17/2024 Housing Stability Answer Date Recorded What is your housing situation today? 1 04/17/2024 Interpersonal Safety Answer Date Record ed Are you being hit, kicked, p ushed or yelled at (see row info)? No 01/23/2025 Interpersonal Safety Abuse 12 - 18 Not on file 01/23/2025 Interpersonal Safety Ambulatory Vulnerability No t on file 01/23/2025 Utilities Answer Date Recorded Do you have trouble paying f or utilities (for example, heat, electricity, water, phone)? 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 Not on file Not on f ile Not on file Obstetrics History Last Filed Vital Signs Vital Sign Reading Time Taken Comments Blood Pressure 128/80 01/29/2025 2:39 PM CDT Pulse 78 01/29/2025 2:00 PM CDT Temperature 36.4 C (97.6 F) 01/23/2025 9:18 AM CDT Respiratory Rate 24 01/23/2025 9:18 AM CDT Oxygen Saturation 95% 01/29/2025 2:00 PM CDT Inhaled Oxygen Concentration - - Weight 81.6 kg (179 lb 12.8 oz) 01/29/2025 2:00 PM CDT Height 167.6 cm (5' 6) 01/23/2025 9:18 AM CDT Body Mass Index 29.02 01/23/2025 9:18 AM CDT Plan of Treatment Upcoming Encounters Date Type Department Care Team (Late st Contact Info) Description 03/11/2025 2:20 PM CDT Office Visit [facility] [address] [place] [address] [place] [address] [place] [address] 05/29/2025 Procedure Only [facility] [address] [facility] [address] [place] [address] Health Maintenance Due Date Last Done Comments Zoster (shingles) series for age 50+ (2 of 2) 03/29/2024 02/02/2024 Medicare Wellness for age 65+ 10/18/2024 10/18/2023, 06/12/2022, 03/29/2021, Additional history exists COVID-19 vaccine series ( season) 2024 06/16/2024, 06/08/2023, 06/12/2022, Additional history exists Influenza Vaccine (#1) 2025 , 05/09/2021, 04/13/2020, Additional history exists BMI (ht and wt on same day) for age 18+ 09/25/2025 09/25/2024, 07/11/2024, 10/18/2023, Additional history exists Depression screening for age 12+ 11/06/2025 11/06/2024, 10/18/2023, 10/18/2023, Additional history exists Tetanus booster 11/17/2033 11/18/2023, 08/0 03/2013, 12/02/2009, Additional history exists Pneumococcal series for age 50+ Completed 08/23/2015, 05/10/2012 RSV vaccine for adults or Completed 02/02/2024 Hepatitis B series for 19+ Aged Out N o longer eligible based on patient's age to complete this topic Medical Devices Implanted Type Area Ekg Monitor Device Identifier Shelf Expiration Date Model / Serial / Lot Mesh Ventral 3x6in Bard Soft - [id number] Implanted:Qty: 1 on 06/04/2019 by Jae Garcia MD at [facility] Right: Inguinal [employer] 05/26/2023 [id number] / / [id number] Description:Bard soft mesh Size 3 x 6 Procedures Procedure Name Priority Date/Time Associated Diagnosis Comments PROTIME-INR Routine 03/02/2025 11:55 AM CDT History of mechanical aortic valve replacement Anticoagulation monitoring, INR range 2.5-3.5 Unspecified cerebral artery occlusion without mention of cerebral infarction [facility] P[facility] DIP ([facility]) Routine 01/29/2025 3:51 PM CDT Microscopic hematuria URINALYSIS MICROSCOPIC Routine 01/29/2025 3:48 PM CDT Microscopic hematuria URINE CULTURE SHANE 01/23/2025 11:45 AM CDT URINALYSIS MICROSCOPIC STAT 01/23/2025 11:45 AM CDT UA W/ SEDIMENT EXAM REFLEXED PER CRITERIA STAT 01/23/2025 11:[address] ABDOMEN PELVIS W STAT 01/23/2025 1 0:46 AM CDT LIPASE STAT 01/23/2025 9:52 AM CDT HEPATIC FUNCTION PANEL STAT 01/23/2025 9:52 AM CDT BASIC METABOLIC PANEL STAT 01/23/2025 9:52 AM CDT PROTIME-INR STAT 01/23/2025 9:52 AM CDT CBC W PLT NO DIFF STAT 01/23/2025 9:5 2 AM CDT PROTIME-INR Routine 01/19/2025 11:41 AM CDT History of mechanical aortic valve replacement Anticoagulation monitoring, INR range 2.5-3.5 Unspecified cerebral artery occlusion without mention of cerebral infarction PROTIME-INR Routine 12/18/2024 10:58 AM CDT History of mechanical aortic valve replacement Anticoagulation monitoring, INR range 2.5-3.5 Unspecified cerebral artery occlusion without mention of cerebral infarction from Last 3 Months Results * (ABNORMAL) PROTIME-INR [00578.0] - Standing Order (03/02/2025 11:55 AM CDT) Only the most recent of4 resultswithin the time period is included. INR 3.2(H) <1.3 03/02/2025 3:22 PM CDT [facility] PROTIME 37.1(H) 10.6 - 12.4 sec 03/02/2025 3:22 PM CDT [facility] Blood BLOOD SPECIMEN / Unknown [facility] Collect / Unknown 03/02/2025 11:55 AM CDT 03/02/2025 11:56 AM CDT Narrative [facility] - 03/02/2025 3:22 PM CDT Therapeutic Range 2.0-3.0 for most anticoagulated patients 2.5-3.5 or 4.0 for high risk patients The INR is only used for patients on stable oral anticoagulant therapy. It makes no significant contribution to the diagnosis or treatment of patients whose Protime is prolonged for other reasons. INR results are increased when heparin levels exceed 1.0 U/mL, which corresponds to an aPTT >125 seconds if the patient is on UFH. Eric Juarez MD HEMATOLOGY Final Res ult [facility] [address] [place] [address], * (ABNORMAL) POCT Urinalysis Dipstick Only [[id number]] (01/29/2025 3:51 PM CDT) PH 5.5 5.0 - 8.0 [facility] SPECIFIC GRAVITY > OR = 1.030 1.001 - 1.035 [facility] Comment: Specific Milo values resulted are outside the analytical measurement range of this device. Recommend repeat/additional testing as clinically indicated. GLUCOSE NEGATIVE NEGATIVE [facility] BILIRUBIN NEGATIVE NEGATIVE [facility] KETONES NEGATIVE NEGATIVE [facility] OCCULT BLOOD 2+(A) NEGATIVE [facility] PROTEIN TRACE(A) NEGATIVE [facility] NITRITE NEGATIVE NEGATIVE [facility] LEUKOCYTE ESTERASE 1+(A) NEGATIVE [facility] Urine URINE SPECIMEN / Unknown 01/29/2025 3:51 PM CDT 01/29/2025 3:51 PM CDT Eric Juarez MD URINE Final Res ult [facility] [address] [place] [address], [facility] [address] [place] [address] * (ABNORMAL) URINALYSIS MICROSCOPIC [[id number]] - routine (01/29/2025 3:48 PM CDT) Only the most recent of2 resultswithin the time period is included. RBC 0-2 0-2, None Seen /HPF 01/30/2025 12:21 AM CDT [facility] WBC 11-25(A) 0-2, 3-5, None Seen /HPF 01/30/2025 12:21 AM CDT [facility] BACTERIA Few None Seen, Rare, Few Bacteria/ HPF 01/30/2025 12:21 AM CDT [facility] EPITHELIAL CELLS None Seen None Seen, Few Epi/HPF 01/30/2025 12:21 AM CDT [facility] HYALINE CASTS 0-2 0-2, 3-5 /LPF 01/30/2025 12:21 AM CDT [facility] CALCIUM OXALATE CRYSTALS Present(A) (none) 01/30/2025 12:21 AM CDT [facility] Urine URINE SPECIMEN / Unknown Non-Blood / Unknown 01/29/2025 3:48 PM CDT 01/29/2025 3:48 PM CDT Narrative [facility] - 01/30/2025 12:21 AM CDT Specimen exceeds standard time for testing Eric Juarez MD URINE Final Res ult [facility] [address] [place] [address], [place] * URINE CULTURE (01/23/2025 11:45 AM CDT) CULTURE <10,000 CFU/mL multiple organisms 01/24/2025 2:53 PM CDT [facility] Urine URINE SPECIMEN / Unknown Non-Blood / Unknown 01/23/2025 11:45 AM CDT 01/23/2025 11:48 AM CDT Marie Pagan MD MICROBIOLOGY Final Result [facility] [address] [place] [address], [place] * (ABNORMAL) URINALYSIS W REFLEX MICROSCOPIC IF POSITIVE (01/23/2025 11:45 AM CDT) COLOR Brown(A) Yellow Color 01/23/2025 11:59 AM CDT [facility] CLARITY Cloudy(A) Clear Clarity 01/23/2025 11:59 AM CDT [facility] SPECIFIC GRAVITY,URINE 1.010 1.010, 1.015, 1.020, 1.025 01/23/2025 11:59 AM CDT [facility] PH,URINE 7.0 6.0, 7.0, 8.0, 5.5, 6.5, 7.5, 8.5 01/23/2025 11:59 AM CDT [facility] UROBILINOGEN, QUALITATIVE Normal Normal EU/dl 01/23/2025 11:59 AM CDT [facility] PROTEIN, URINE Trace(A) Negative mg/dL 01/23/2025 11:59 AM CDT [facility] GLUCOSE, URINE Negative Negative mg/dL 01/23/2025 11:59 AM CDT [facility] KETONES,URINE Negative Negative mg/dL 01/23/2025 11:59 AM CDT [facility] BILIRUBIN,URI NE Negative Negative 01/23/2025 11:59 AM CDT [facility] OCCULT BLOOD,URINE Large(A) Negative 01/23/2025 11:59 AM CDT [facility] NITRITE Negative Negative 01/23/2025 11:59 AM CDT [facility] LEUKOCYTE ESTERASE Negative Negative 01/23/2025 11:59 AM CDT [facility] Urine URINE SPECIMEN / Unknown Non-Blood / Unknown 01/23/2025 11:45 AM CDT 01/23/2025 11:48 AM CDT Marie Pagan MD URINE Final Result [facility] [address] [id number], * CT ABD/PELVIS W IV CONTRAST (01/23/2025 10:46 AM CDT) Anatomical Region Laterality Modality Abdomen, Pelvis, AORTA, LIVER, SPLEEN Computed Tomography 01/23/2025 10:4 6 AM CDT Impressions 01/23/2025 11:32 AM CDT No acute findings in the abdomen and pelvis. Narrative 01/23/2025 11:32 AM CDT For Patients: As a result of the Century Cures Act, medical imaging exams and procedure reports are released immediately into your electronic medical record. You may view this report before your referring provider. If you have questions, please contact your health care provider. EXAM: CT ABDOMEN PELVIS W LOCATION: [facility] DATE: 01/23/2025 INDICATION: LLQ abdominal pain COMPARISON: None. TECHNIQUE: CT scan of the abdomen and pelvis was performed following injection of IV contrast. Multiplanar reformats were obtained. Dose reduction techniques were used. CONTRAST: Omnipaque 350 88 mL FINDINGS: LOWER CHEST: Normal. HEPATOBILIARY: Hepatic steatosis. Gallbladder within normal limits. PANCREAS: Normal. SPLEEN: Normal. ADRENAL GLANDS: Normal. KIDNEYS/BLADDER: Cyst is within the left kidney which is benign and needs no further follow-up. Kidneys are otherwise unremarkable with no evidence of hydronephrosis. BOWEL: No obstruction or inflammatory change. Postsurgical changes are noted to the bowel. LYMPH NODES: Normal. VASCULATURE: Moderate atherosclerotic disease of the abdominal aorta and its branches. PELVIC ORGANS: Bladder within normal limits. MUSCULOSKELETAL: Degenerative changes of the spine. Procedure Note Carlos Morris MD - 01/23/2025 For Patients: As a result of the Cures Act, medical imagingexams and procedure reports are released immediately into your electronicmedical record. You may view this report before your referring provider.If you have questions, please contact your health care provider. EXAM: CT ABDOMEN PELVIS W LOCATION: [facility] DATE: 01/23/2025 INDICATION: LLQ abdominal pain COMPARISON: None. TECHNIQUE: CT scan of the abdomen and pelvis was performed followinginjection of IV contrast. Multiplanar reformats were obtained. Dosereduction techniques were used. CONTRAST: Omnipaque 350 88 mL FINDINGS: LOWER CHEST: Normal. HEPATOBILIARY: Hepatic steatosis. Gallbladder within normal limits. PANCREAS: Normal. SPLEEN: Normal. ADRENAL GLANDS: Normal. KIDNEYS/BLADDER: Cyst is within the left kidney which is benign and needsno further follow-up. Kidneys are otherwise unremarkable with no evidenceof hydronephrosis. BOWEL: No obstruction or inflammatory change. Postsurgical changes arenoted to the bowel. LYMPH NODES: Normal. 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 PELVIC ORGANS: Bladder within normal limits. MUSCULOSKELETAL: Degenerative changes of the spine. IMPRESSION: No acute findings in the abdomen and pelvis. us Marie Pagan MD CT Final Result * CBC W PLT NO DIFF (01/23/2025 9:52 AM CDT) WHITE BLOOD COUNT 6.5 4.5 - 11.0 thou/cu mm 01/23/2025 9:57 AM CDT [facility] RED BLOOD COUNT 4.55 4.30 - 5.90 mil/cu mm 01/23/2025 9:57 AM CDT [facility] HEMOGLOBIN 13.7 13.5 - 17.5 g/dL 01/23/2025 9:57 AM CDT [facility] HEMATOCRIT 42.2 37.0 - 53.0 % 01/23/2025 9:57 AM CDT [facility] MCV 93 80 - 100 fL 01/23/2025 9:57 AM CDT [facility] MCH 30.1 26.0 - 34.0 pg 01/23/2025 9:57 AM CDT [facility] MCHC 32.5 32.0 - 36.0 g/dL 01/23/2025 9:57 AM CDT [facility] RDW 13.1 11.5 - 15.5 % 01/23/2025 9:57 AM CDT [facility] PLATELET COUNT 186 140 - 440 thou/cu mm 01/23/2025 9:57 AM CDT [facility] MPV 8.7 6.5 - 11.0 fL 01/23/2025 9:57 AM CDT [facility] NRBC 0.0 % 01/23/2025 9:57 AM CDT [facility] ABS NRBC 0.0 thou /cu mm 01/23/2025 9:57 AM CDT [facility] Blood BLOOD SPECIMEN / Unknown IV Start / Unknown 01/23/2025 9:52 AM CDT 01/23/2025 9:55 AM CDT us Marie Pagan MD HEMATOLOGY Final Result [facility] [address] [place] [address], [place] [phone] * LIPASE (01/23/2025 9:52 AM CDT) LIPASE 27.7 13.0 - 60.0 IU/L 01/23/2025 10:16 AM CDT [facility] Blood BLOOD SPECIMEN / Unknown IV Start / Unknown 01/23/2025 9:52 AM CDT 01/23/2025 9:55 AM CDT Marie Pagan MD CHEMISTRY Final Result [facility] [address] [place] [address], * (ABNORMAL) HEPATIC FUNCTION PANEL (01/23/2025 9:52 AM CDT) Pathologist [facility] ALBUMIN 3.8(L) 4.0 - 4.9 g/dL 01/23/2025 10:16 AM CDT [facility] PROTEIN,TOTAL 7.1 6.0 - 8.0 g/dL 01/23/2025 10:16 AM CDT [facility] BILIRUBIN,TOTAL 0.6 0.0 - 1.2 mg/dL 01/23/2025 10:16 AM CDT [facility] BILIRUBIN,DIRECT 0.3(H) 0.0 - 0.2 mg/dL 01/23/2025 10:16 AM CDT [facility] BILIRUBIN,INDIRE CT 0.3 0.2 - 0.8 mg/dL 01/23/2025 10:16 AM CDT [facility] ALK PHOSPHATASE 68 40 - 129 IU/L 01/23/2025 10:16 AM CDT [facility] ALT (SGPT) 18 10 - 50 IU/L 01/23/2025 10:16 AM CDT [facility] AST (SGOT) 35 10 - 50 IU/L 01/23/2025 10:16 AM CDT [facility] Blood BLOOD SPECIMEN / Unknown IV Start / Unknown 01/23/2025 9:52 AM CDT 01/23/2025 9:55 AM CDT Marie Pagan MD CHEMISTRY Final Result [facility] [address] [place] [address], [place] [phone] * (ABNORMAL) BASIC METABOLIC PANEL (01/23/2025 9:52 AM CDT) SODIUM 142 136 - 145 mmol/L 01/23/2025 10:16 AM CDT [facility] POTASSIUM 4.6 3.5 - 5.1 mmol/L 01/23/2025 10:16 AM CDT [facility] CHLORIDE 108(H) 98 - 107 mmol/L 01/23/2025 10:16 AM CDT [facility] CO2,TOTAL 25 22 - 29 mmol/L 01/23/2025 10:16 AM CDT [facility] ANION GAP 9 5 - 18 01/23/2025 10:16 AM CDT [facility] GLUCOSE 127(H) 70 - 99 mg/dL 01/23/2025 10:16 AM CDT [facility] CALCIUM 9.2 8.8 - 10.4 mg/dL 01/23/2025 10:16 AM CDT [facility] Comment: Reference ranges for this test were updated on 06/03/2024 to reflect our healthy population more accurately. Reference range changes are not retroactively applied to results, but previous results using the same methodology can be interpreted in the context of the new reference range. BUN 18 8 - 23 mg/dL 01/23/2025 10:16 AM CDT [facility] CREATININE 0.88 0.70 - 1.20 mg/dL 01/23/2025 10:16 AM CDT [facility] BUN/CREAT RATIO 20 10 - 20 10:16 AM CDT [facility] eGFR 85(L) >90 mL/min/1.7 3m2 01/23/2025 10:16 AM CDT [facility] Comment:As of 2021, eG FR is calculated by the CKD-EPI creatinine equation without race adjustment. eGFR can be influenced by muscle mass, exercise, and diet. The reported eGFR is an estimation only and is only applicable if the renal function is stable. Blood BLOOD SPECIMEN / Unknown IV Start / Unknown 01/23/2025 9:52 AM CDT 01/23/2025 9:55 AM CDT Marie Pagan MD CHEMISTRY Final Result [facility] [address] [place] [address], from Last 3 Months Additional Health Concerns Infection Onset Date Last Indicated MRSA Clearance Comment:Infection Control Note: Hx of MRSA, surveillance criteria met, no need for further testing or isolation precautions. Do not delete or resolve the infection flag. 06/04/2019 06/04/2019 Insurance MEDICARE PART A HB ONLY BLUE CROSS MEDICARE ADVANTAGE MR JAIDEN [employer] INSURANCE Member Subscriber Plan / Payer (Ef fective 2009-Present) Name:Iron Bellamy Jr. Member ID:[id number] Relation to Subscriber:Employee Name:Consumr Subscriber ID:[id number] Date of :1999 (Home) Address: [address] [place] [id number] Payer ID:Not on file Group ID:[id number] # [id number] Type:Not on file Address: [address] [place] [id number] Advance Directives Documents on File Type Date Recorded Patient Fitness Director Expl anation Healthcare Directive 03/24/2024 024 * Full Code (Latest Code Status on File) Date Activated Date Inactivated Comments 12/12/2021 11:00 PM 12/14/2021 5:41 PM Question Answer Comments Code Status Discussion: Reviewed Preferences * Full Code Date Activated Date Inactivated Comments 08/02/2020 9:58 PM 08/05/2020 2:48 PM Question Answer Comments Code Status Discussion: Per Existing Order * Full Code Date Activated Date Inactivated Comments 06/04/2019 1:57 PM 06/04/2019 8:26 PM * Full Code Date Activated Date Inactivated Comments 06/04/2019 10:01 AM 06/04/2019 1:57 PM Question Answer Comments Code Status Discussion: Not Discussed * Full Code Date Activated Date Inactivated Comments 03/13/2013 3:18 PM 03/13/2013 6:00 PM Care Teams Assembler Erector Relationship Specialty Start Date End Date Eric Juarez MD [address] [place] [address] PCP - General Family Practice 03/06/11 Constantino Bhatia MD [address] [place] [address] Neurology Neurology 01/08/13 Heather Pickens PA [address] [place] [address] Cardiology Physician Inbound Telemarketer 08/19/20 [place] [address] [place] [address] Cardiology Cardiovascular Disease 03/29/21 Ana Hdez MBBS [address] [place] [address] [place] [address] Vascular Surgery Surgery - Vascular 10/18/23
--- NOTE | 2025-03-08 09:29 | CRLHL7_ITS ---
For Patients: As a result of the Cures Act, medical imaging exams and procedure reports are released immediately into your electronic medical record. You may view this report before your referring provider. If you have questions, please contact your health care provider. INDICATION: Shortness of breath. TECHNIQUE: Chest two-views. COMPARISON: None. FINDINGS: There has been a previous midline sternotomy. There is a pacemaker device on the left side of the chest with right atrial and right ventricular leads in place. The heart is normal in size. There is atherosclerotic calcification within the aortic arch with tortuosity the thoracic aorta. The lungs are essentially clear. The pulmonary vasculature is normal. There are old healed fracture of the right 5th and 6th and 7th ribs. There are moderate compression fractures of what are likely T10 and L2 that are of uncertain age. IMPRESSION: Sternotomy. Pacemaker. No acute cardiac or pulmonary process identified. Moderate compression of the T10 and L2 of uncertain age. Dictated by Lexx Moctezuma MD @ 03/08/2025 10:20:59 AM (Electronically Signed)
--- NOTE | 2025-03-08 09:30 | ED.GENADULT ---
HPI - General Adult General Chief complaint: Anxiety Stated complaint: Shakey, hard time breathing, anxious Time Seen by Provider: 03/08/25 09:18 Source: patient and family Mode of arrival: ambulatory Limitations: no limitations History of Present Illness HPI narrative: 84-year-old male presenting today with anxiety. Patient is a very poor historian. Patient states that last night he could not sleep because he felt so anxious. He also stated that he could not breathe and felt short of breath last night. Right now he states that he feels fine. When I ask with this ever happen before he says no. His daughter states that this has happened many times. When I ask him when are other times he has felt anxious he says that when he has to hold onto things he feels anxious because his hand starts to shake. This includes when he drives. He denies any recent illness. He denies chest pain or abdominal discomfort. No urinary symptoms. No diarrhea or constipation. No fevers or chills. He states that his appetite is not normal but then tells me he ate breakfast and dinner last night and that he has a big appetite. Denies headache. Denies any focal neurologic deficits. Tells me that his lower extremities feel tired and that this is not new. 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 Related Data Home Medications ?Medication ?Instructions ?Recorded ?Confirmed gabapentin 600 mg tablet 600 mg PO 3XD 11/17/23 03/08/25 isosorbide mononitrate 30 mg 30 mg PO DAILY 11/17/23 03/08/25 tablet,extended release 24 hr levetiracetam 750 mg tablet 750 mg PO BID 11/17/23 03/08/25 lovastatin 40 mg tablet 40 mg PO QPM cholesterol 11/17/23 03/08/25 metoprolol succinate 50 mg 50 mg PO DAILY 11/17/23 03/08/25 tablet,extended release 24 hr warfarin 2 mg tablet 1.5 - 5 mg PO QPM 11/17/23 03/08/25 Previous Rx's ?Medication ?Instructions ?Recorded hydroxyzine HCl 10 mg tablet 10 mg PO QHS PRN #5 tabs 03/08/25 Allergies Allergy/AdvReac Type Severity Reaction Status Date / Time No Known Drug Allergies Allergy Verified 03/08/25 09:18 Review of Systems Status of ROS: Reports: 10 or more systems reviewed and unremarkable except as noted in History and below [facility] Social History Smoking Status: Never smoker Do you use any of these nicotine containing products: None How often do you have a drink containing alcohol: never How often do you have six or more drinks on one occasion: Never AUDIT-C Alcohol total score: 0 Non-prescribed substance use: denies use service: No Exam Narrative: Exam Narrative: Well-nourished well-developed patient in no acute distress. Alert and oriented x3. Answers questions appropriately for the most part, with sometimes is answers do not make the most sense. Mood and affect are appropriate. Patient speaks in full sentences without needing to catch their breath. HEENT: Normocephalic atraumatic. Pupils are equally round reactive to light. Extraocular muscles are intact. Conjunctivae are moist without any icterus noted. Moist mucous membranes. Neck is soft. Cardiovascular: Heart is regular rate and rhythm, distant. Lungs: Clear to auscultation bilaterally no wheezes rhonchi or rales are appreciated. Patient takes deep breaths without any discomfort. Abdomen: Soft and nontender nondistended with normal bowel sounds. No guarding or rebound. Extremities: Bilateral lower extremities show 1 to 2+ pitting edema. Skin: Well perfused without any obvious rashes. Const: Vital Signs, click to edit/add: Vital Signs - 24 hr 03/08/25 09:14 03/08/25 09:29 03/08/25 09:36 Temperature 97.8 F Pulse Rate Pulse Rate [Right Pulse Oximeter] 75 Respiratory Rate 18 Blood Pressure 129/71 Blood Pressure [Ri ght Upper Arm] 157/78 H Pulse Oximetry 93 93 Oxygen Delivery Me thod Room Air 03/08/25 09:38 03/08/25 09:40 03/08/25 09:42 Temperature Pulse Rate 68 64 65 Pulse Rate [Right Pulse Oximeter] Respiratory Rate Blood Pressure 127/64 126/72 Blood Pressure [Ri ght Upper Arm] Pulse Oximetry 92 95 94 Oxygen Delivery Me thod 03/08/25 09:43 03/08/25 09:55 03/08/25 10:00 Temperature Pulse Rate 64 Pulse Rate [Right Pulse Oximeter] Respiratory Rate 16 15 Blood Pressure Blood Pressure [Ri ght Upper Arm] Pulse Oximetry 95 Oxygen Delivery Me thod 03/08/25 10:04 03/08/25 10:15 03/08/25 10:17 Temperature Pulse Rate 65 62 Pulse Rate [Right Pulse Oximeter] Respiratory Rate 16 15 14 Blood Pressure 124/72 107/64 Blood Pressure [Ri ght Upper Arm] Pulse Oximetry 94 93 Oxygen Delivery Me thod 03/08/25 10:18 03/08/25 10:30 03/08/25 10:32 Temperature Pulse Rate 63 62 61 Pulse Rate [Right Pulse Oximeter] Respiratory Rate 18 12 Blood Pressure 119/70 Blood Pressure [Ri ght Upper Arm] Pulse Oximetry 95 94 94 Oxygen Delivery Me thod 03/08/25 10:45 03/08/25 10:47 03/08/25 11:00 Temperature Pulse Rate 62 61 61 Pulse Rate [Right Pulse Oximeter] Respiratory Rate 13 15 Blood Pressure 112/65 Blood Pressure [Ri ght Upper Arm] Pulse Oximetry 93 93 93 Oxygen Delivery Me thod Course Course ED Course: Given the difficulty understanding exactly what has been going on, we proceeded with a more thorough workup. EKG, read by me, shows an atrial sensed ventricular paced rhythm with a pulse of 64. CBC is unremarkable. Normal lactate. Normal troponin. Chest x-ray does not show any acute pathology. Urine showing 1+ leukocyte esterase, 2-5 RBCs in 5-10 wbc's Normal chemistries. Normal LFTs. Normal CRP. Normal magnesium. INR therapeutic at 2.8. TSH normal. BNP 472. Vital Signs Vital signs: Initial Vital Signs Temperature 97.8 F 03/08/25 09:14 Temperature Source Temporal Artery Scan 03/08/25 09:14 Pulse Rate 75 03/08/25 09:14 Pulse Rhythm Regular 03/08/25 09:14 Pulse Strength 3+ Normal 03/08/25 09:14 Respiratory Rate 18 03/08/25 09:14 Blood Pressure 157/78 H 03/08/25 09:14 Blood Pressure Mean 104 03/08/25 09:14 Blood Pressure Position Sitting 03/08/25 09:14 Pulse Oximetry 93 03/08/25 09:14 Oxygen Delivery Method Room Air 03/08/25 09:14 Vital Signs Temperature 97.8 F 03/08/25 09:14 Pulse Rate 75 03/08/25 09:14 Respiratory Rate 18 03/08/25 09:14 Blood Pressure 157/78 H 03/08/25 09:14 Pulse Oximetry 93 03/08/25 09:14 Oxygen Delivery Method Room Air 03/08/25 09:14 Temperature 97.8 F 03/08/25 09:14 Pulse Rate 61 03/08/25 11:00 Respiratory Rate 15 03/08/25 11:00 Blood Pressure 112/65 03/08/25 10:47 Pulse Oximetry 93 03/08/25 11:00 Oxygen Delivery Method Room Air 03/08/25 09:14 Medical Decision Making MDM Narrative Medical decision making narrative: 84-year-old male with difficulty sleeping last night, which he attributes to anxiety. At this point we will give the patient a a handful of hydroxyzine to take at night. I would like for him to follow up with primary care provider to discuss more definitive treatment. Slightly abnormal urine analysis without any symptoms of UTI. Will wait for urine cultures. If cultures are positive, then recommend treatment. Lab Data Lab results reviewed: Yes I reviewed the patient's lab results Labs: Lab Results 03/08/25 03/08/25 Range/Units 09:30 10:00 WBC 9.32 (4.50-11.00) K/uL RBC 4.73 (4.30-5.90) m/uL Hgb 14.2 (13.5-17.5) gm/dL Hct 43.5 (37.0-53.0) % MCV 92 (80-100) fL MCH 30 (26-34) pg MCHC 33 (32-36) gm/dL RDW Coeff of Zeynep 12.6 (11.5-15.5) % Plt Count 233 (140-440) K/uL Neut % (Auto) 77.4 H (42.0-72.0) % Lymph % (Auto) 12.0 L (20-44) % [place] % (Auto) 7.9 (0.0-11.0) % Eos % (Auto) 1.7 (0.0-7.0) % Baso % (Auto) 0.2 (0.0-3.0) % Neut # (Auto) 7.20 H (1.7-7.0) K/uL Lymph # (Auto) 1.10 (0.90-2.90) K/uL [place] # (Auto) 0.70 (0.00-0.90) K/UL Eos # (Auto) 0.16 (0.00-0.50) K/uL Baso # (Auto) 0.02 (0.00-0.30) K/uL Abs Immat Gran (auto) 0.07 (0.00-0.30) K/uL Imm/Tot Granulo (auto) 0.8 % INR 2.88 H (0.91-1.10) Sodium 138 (135-149) mmol/L Potassium 4.3 (3.6-5.1) mmol/L Chloride 104 (96-114) mmol/L Carbon Dioxide 31 (20-32) mmol/L Anion Gap 3 L (7-15) mEq/L BUN 20 (7-30) mg/dL Creatinine 0.8 (0.5-1.5) mg/dL Estimated Creat Clear 52.33 Estimated GFR 88 ml/min Glucose 105 (60-115) mg/dL Lactate 1.3 (0.5-1.9) mmol/L Calcium 9.3 (8.4-10.6) mg/dL Magnesium 2.1 (1.5-2.6) mg/dL Total Bilirubin 0.8 (0.1-1.5) mg/dL Direct Bilirubin 0.3 (0.0-0.5) mg/dL AST 35 (12-35) U/L ALT 19 (4-50) U/L Alkaline Phosphatase 73 (40-150) U/L Troponin I 0.02 (0.01-0.04) ng/mL C-Reactive Protein 0.6 (0.5-1.0) mg/dL NT-Pro-B Natriuret Pep 472 H (See Note) pg/mL Total Protein 7.5 (6.0-8.3) g/dL Albumin 3.9 (3.3-5.0) g/dL TSH 3.460 (0.270-4.20) uIU/mL Urine Color Yellow (Yellow) Urine Appearance Clear (Clear) Urine pH 5.5 (5.0-8.5) Ur Specific [place] 1.020 (1.000-1.030) Urine Protein Negative (Negative) Urine Glucose (UA) Negative (Negative) Urine Ketones Negative (Negative) Urine Blood Trace-intact A (Negative) Urine Nitrite Negative (Negative) Urine Bilirubin Negative (Negative) Urine Urobilinogen 0.2 (0.2-1.0) Ur Leukocyte Esterase 1+ A (Negative) Urine RBC 2-5 A (0-2) Urine WBC 5-10 A (0-5) Ur Squamous Epith Cells Few (None-Few) Urine Bacteria Few A (None) POC Troponin I 0.01 (0.01-0.04) ng/ml Imaging Data Chest x-ray: Attestation: I have reviewed the pertinent imaging results. Radiologist's impression: TECHNIQUE: Chest two-views. COMPARISON: None. FINDINGS: There has been a previous midline sternotomy. There is a pacemaker device on the left side of the chest with right atrial and right ventricular leads in place. The heart is normal in size. There is atherosclerotic calcification within the aortic arch with tortuosity the thoracic aorta. The lungs are essentially clear. The pulmonary vasculature is normal. There are old healed fracture of the right 5th and 6th and 7th ribs. There are moderate compression fractures of what are likely T10 and L2 that are of uncertain age. IMPRESSION: Sternotomy. Pacemaker. No acute cardiac or pulmonary process identified. Moderate compression of the T10 and L2 of uncertain age. ECG Data Attestation: I personally reviewed and interpreted this ECG as follows: Discharge Plan Discharge Clinical Impression: Acute anxiety, Abnormal urinalysis Patient Disposition: Home, Self-Care Condition: Stable Additional Instructions: You will be discharged home today with hydroxyzine which will be medicine that can help with anxiety. Okay to take before bed as needed. However, I do want you to follow-up with your primary care provider this coming week to discuss a more definitive treatment for anxiety. Lastly, urinalysis today was slightly abnormal. We will await for urine cultures-if this is positive you will be started on an antibiotic. You will be contacted in about 2-3 days if this is the case. Prescriptions: New hydroxyzine HCl 10 mg tablet 10 mg PO QHS PRNQty: 5 0RF No Action gabapentin 600 mg tablet 600 mg PO 3XD metoprolol succinate 50 mg tablet extended release 24 hr 50 mg PO DAILY isosorbide mononitrate 30 mg tablet extended release 24 hr 30 mg PO DAILY lovastatin 40 mg tablet 40 mg PO QPM warfarin 2 mg tablet 1.5 - 5 mg PO QPM levetiracetam 750 mg tablet 750 mg PO BID Follow Up/Referrals: Eric Juarez MD [Primary Care Provider, Family Practice] Stand Alone Forms: [employer] Info Instructions
[2025-03-08 10:12] LABS: Lactate* 1.3 mmol/L (0.5-1.9)
[2025-03-08 10:16] LABS: Hematocrit 43.5 % (37.0-53.0); Hemoglobin* 14.2 gm/dL (13.5-17.5); Immature Granulocytes Abs Auto 0.07 K/uL (0.00-0.30); Immature Granulocytes Pct Auto 0.8 %; Lymphocytes Absolute Auto 1.10 K/uL (0.90-2.90); Mean Corpuscular HGB Conc 33 gm/dL (32-36); Mean Corpuscular Hemoglobin 30 pg (26-34); Mean Corpuscular Volume 92 fL (80-100); RDW Coefficient of Variation % 12.6 % (11.5-15.5); Red Blood Count 4.73 m/uL (4.30-5.90); Slide Review Reflex No; White Blood Count* 9.32 K/uL (4.50-11.00)
[2025-03-08 10:20] LABS: Troponin, Point-of-Care* 0.01 ng/ml (0.01-0.04)
[2025-03-08 10:28] LABS: Appearance Urine Clear (Clear)
[2025-03-08 10:32] LABS: Albumin* 3.9 g/dL (3.3-5.0); Chloride* 104 mmol/L (96-114)
[2025-03-08 10:33] LABS: Potassium* 4.3 mmol/L (3.6-5.1); Sodium* 138 mmol/L (135-149)
[2025-03-08 10:35] LABS: Blood Urea Nitrogen* 20 mg/dL (7-30); Creatinine* 0.8 mg/dL (0.5-1.5); Est. Creatinine Clearance* 52.33; Estimated Glomerular Filt Rate 88 ml/min
[2025-03-08 10:36] LABS: Alanine Aminotransferase* 19 U/L (4-50); Alkaline Phosphatase* 73 U/L (40-150); Anion Gap 3 mEq/L (7-15); Aspartate Amino Transferase* 35 U/L (12-35); Bilirubin Direct* 0.3 mg/dL (0.0-0.5); Bilirubin Total* 0.8 mg/dL (0.1-1.5); Calcium* 9.3 mg/dL (8.4-10.6); Carbon Dioxide* 31 mmol/L (20-32); Glucose* 105 mg/dL (60-115); Total Protein* 7.5 g/dL (6.0-8.3)
[2025-03-08 10:51] LABS: NT Pro B Type NatriureticPept* 472 pg/mL (See Note)
[2025-03-08 11:00] LABS: Prothrombin Time 31.4 Seconds
[2025-03-08 11:01] LABS: INR 2.88 (0.91-1.10)
== END 2025-03-08 11:34 | disposition home or self-care (01) ==
PROVIDERS: Emergency Provider Family Medicine; PCP Family Medicine
DX: F41.9 Anxiety disorder, unspecified (principal); R82.90 Unspecified abnormal findings in urine; R06.02 Shortness of breath; Z95.2 Presence of prosthetic heart valve; Z79.01 Long term (current) use of anticoagulants; Z95.0 Presence of cardiac pacemaker
CPT/HCPCS: 36415; 71046; 80048; 80076; 81001; 83605; 83735; 83880; 84443; 84484; 85025; 85610; 86140; 87086; 93005; 94761; 99284; 99285